=== PATIENT | male | born 1975 | race Caucasian/White ===

== ENCOUNTER 2021-05-07 01:05 | Emergency (ER) | payer BC ==
[2021-05-07 01:13] VITALS: PULSE 83; TEMP 98
[2021-05-07] MEDS ORDERED: BACITRACIN OINT 1 EACH PACKET TOPICAL ONE (02:33)
[2021-05-07] MEDS ORDERED: LIDOCAINE 1% INJ 10MG/ML (20 ML MDV) SQ ONE (02:33)
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
[2021-05-07 03:15] VITALS: BP 120/84; RESP 20
== END 2021-05-07 03:15 | disposition home or self-care (01) ==
LOC: EC 01:05
DX: S01.81XA Laceration without foreign body of other part of head, initial encounter (principal); W22.8XXA Striking against or struck by other objects, initial encounter
CPT/HCPCS: 99282; 12013; J2001